=== PATIENT | male | born 1950 | race Caucasian/White ===

== ENCOUNTER 2016-08-23 17:19 | Emergency (ER) | payer MEDICARE, OTHER ==
[2016-08-23] MEDS ORDERED: Adacel Vial IM ONE ×2 (17:35→17:40)
[2016-08-23] MEDS ORDERED: XYLOCAINE 1% HCL 20 ML MDV IJ ONE (17:36)
[2016-08-23] MEDS ORDERED: BACIGUENT PACKET TP ONE (17:37)
[2016-08-23] MEDS ORDERED: BACIGUENT PACKET ONE (17:39)
[2016-08-23] MEDS ORDERED: XYLOCAINE 1% HCL 20 ML MDV ONE (17:39)
--- NOTE | 2016-08-23 17:50 | ERPHSYRPT ---
- History of Present Illness Time Seen by Provider: 08/23/16 17:44 Source: patient, family Exam Limitations: no limitations Patient Subjective Stated Complaint: cut fingers with table saw Triage Nursing Assessment: alert x 3, left hand middle finger has lacerations approx 1cm over the finger nail and side of finger, ring finger small laceration approx 1/2 cm to tip of finger. pt able to move all fingers and senstation is intact. Physician History: The patient is a 66-year-old male with his complaining of cutting his left middle finger and left ring finger on a table saw a few minutes before arrival. He does not know when his last tetanus shot was. The cut to the ring finger is minor. He cut to the middle finger is at the tip and involves the fingernail. The patient is left-handed. He has no numbness or tingling in his fingers. Occurred: just prior to arrival Method of Injury: other (table saw) Quality: constant Severity of Pain-Max: mild Severity of Pain-Current: mild Extremities Pain Location: 3rd finger: left, 4th finger: left Modifying Factors: Improves With: nothing Associated Symptoms: none Allergies/Adverse Reactions: No Known Drug Allergies Allergy (Unverified 08/23/16 17:32) Home Medications: Pravastatin Sodium 10 mg PO DAILY 08/23/16 [History] Hx Tetanus, Diphtheria Vaccination/Date Given: Yes (2010) Hx Influenza Vaccination/Date Given: No Hx Pneumococcal Vaccination/Date Given: No Immunizations Up to Date: Yes - Review of Systems Constitutional: No Fever, No Chills Eyes: No Symptoms Ears, Nose, & Throat: No Symptoms Respiratory: No Cough, No Dyspnea Cardiac: No Chest Pain, No Edema, No Syncope Abdominal/Gastrointestinal: No Abdominal Pain, No Nausea, No Vomiting, No Diarrhea Genitourinary Symptoms: No Dysuria Musculoskeletal: No Back Pain, No Neck Pain Skin: Other (Laceration) Neurological: No Dizziness, No Focal Weakness, No Sensory Changes Psychological: No Symptoms Endocrine: No Symptoms Hematologic/Lymphatic: No Symptoms Immunological/Allergic: No Symptoms All Other Systems: Reviewed and Negative - Past Medical History Pertinent Past Medical History: Yes Neurological History: No Pertinent History ENT History: Cataracts Cardiac History: High Cholesterol Respiratory History: No Pertinent History Endocrine Medical History: No Pertinent History Musculoskeletal History: No Pertinent History GI Medical History: No Pertinent History History: No Pertinent History Psycho-Social History: No Pertinent History Male Reproductive Disorders: No Pertinent History - Past Surgical History Past Surgical History: No Cardiac: No Pertinent History Respiratory: No Pertinent History Gastrointestinal: No Pertinent History Genitourinary: No Pertinent History Musculoskeletal: No Pertinent History Male Surgical History: No Pertinent History Other Surgical History: iknee surgery 2011 and 2013 both knees - Social History Smoking Status: Never smoker Exposure to second hand smoke: No Drug Use: none Patient Lives Alone: No - Nursing Vital Signs Nursing Vital Signs: Initial Vital Signs Temperature 97.5 F Temperature Source Oral Pulse Rate 65 Respiratory Rate 18 Blood Pressure [] 159/86 Pain Intensity 0 - Physical Exam General Appearance: alert Eyes, Ears, Nose, Throat Exam: moist mucous membranes Neck Exam: non-tender, supple Cardiovascular/Respiratory Exam: chest non-tender, normal breath sounds, regular rate/rhythm, no respiratory distress Abdominal Exam: non-tender, No guarding Back Exam: normal inspection, No vertebral tenderness Shoulder Exam: normal inspection Elbow/Forearm Exam: normal inspection Wrist Exam: normal inspection Hand Exam: nail injury (Tiny superficial laceration to tip of left ring finger. Laceration to distal left middle finger involving the nailbed.) Neuro/Tendon Exam: normal sensation, normal motor functions Mental Status Exam: alert, oriented x 3, cooperative Skin Exam: laceration (As described above) SpO2: 95 Oxygen Delivery: Room Air Procedures - Laceration/Wound Repair Left Distal Finger Wound Location: Left (distal middle finger) Wound Length (cm): 1.5 Wound's Depth, Shape: superficial, linear, nail-avulsed Wound Explored: clean Irrigated: Yes Hibiclens Prep: Yes Anesthesia: local, 1% Lidocaine Volume Anesthetic (ccs): 3 Wound Debrided: minimal Wound Repaired With: sutures Suture Size/Type: 4-0, nylon Number of Sutures: 4 Layer Closure?: No Sterile Dressing Applied?: Yes Splint Applied?: No Sling Applied?: No - Radiology Exams Left Hand X-ray Interpretation: Interpreted by me, Negative, No Fracture, Other ( laceration to distal left middle finger) Ordered Tests: Active Orders 24 hr Category Date Time Status Sutures STAT Care 08/23/16 17:34 Active Wound Care STAT Care 08/23/16 17:52 Active FINGER(S) Stat Exams 08/23/16 17:53 Taken Medication Summary Discontinued Medications Generic Name Dose Route Start Last Admin Trade Name Maurilio PRN Reason Stop Dose Admin Bacitracin 0.9 gm 08/23/16 17:37 08/23/16 17:43 Baciguent Packet TP 08/23/16 17:38 0.9 gm STAT ONE Administration Bacitracin Confirm 08/23/16 17:39 Baciguent Packet Administered 08/23/16 17:40 Dose 1 gm .ROUTE .STK-MED ONE Diphtheria/Tetanus/Acell Pertussis 0.5 ml 08/23/16 17:35 08/23/16 17:42 Adacel Vial IM 08/23/16 17:36 0.5 ml .ONCE ONE Administration Diphtheria/Tetanus/Acell Pertussis Confirm 08/23/16 17:40 Adacel Vial Administered 08/23/16 17:41 Dose 0.5 ml IM .STK-MED ONE Lidocaine HCl 5 ml 08/23/16 17:36 08/23/16 17:45 Xylocaine 1% Hcl 20 Ml Mdv IJ 08/23/16 17:37 5 ml STAT ONE Administration Lidocaine HCl Confirm 08/23/16 17:39 Xylocaine 1% Hcl 20 Ml Mdv Administered 08/23/16 17:40 Dose 5 ml .ROUTE .STK-MED ONE - Progress Progress: improved Counseled pt/family regarding: diagnosis, rad results - Departure Time of Disposition: 18:14 Departure Disposition: Home Clinical Impression: Laceration of finger nail bed Condition: Stable Critical Care Time: No Referrals: NAV GARZA MD [Primary Care Provider] - Instructions: Care for a Laceration After Repair Additional Instructions: Follow up for suture removal in 12 to 14 days. Take naproxen 500 mg twice a day as needed. Take augmentin twice a day for 10 days. Prescriptions: Amoxicillin/Potassium Clav [Augmentin 875-125 Tablet] 875 mg PO BID #20 tablet Naproxen 500 mg PO BID PRN #30 tablet
[2016-08-23 18:20] VITALS: BP 126/80; PULSE 78; O2SAT 97
--- NOTE | 2016-08-24 08:30 | XRAY ---
Indication: Laceration. Comparison: None 3 views of the left third finger demonstrates laceration involving the tip. No other bony, articular, or soft tissue abnormalities.
== END 2016-08-23 18:20 | disposition home or self-care (01) ==
LOC: ED 17:19
PROC: 0HQGXZZ Repair Left Hand Skin, External Approach (ICD-10-PCS; principal; 2016-08-23)
DX: S61.313A Laceration without foreign body of left middle finger with damage to nail, initial encounter (principal); W31.2XXA Contact with powered woodworking and forming machines, initial encounter
CPT/HCPCS: 12001; 73140; 90471; 90715; 96372; 99283

== ENCOUNTER 2018-01-10 11:06 | Emergency (ER) | payer MEDICARE, OTHER | END 2018-01-10 11:50 | disposition home or self-care (01) | LOC: ED 11:06 | DX: S61.012A Laceration without foreign body of left thumb without damage to nail, initial encounter (principal); W26.8XXA Contact with other sharp object(s), not elsewhere classified, initial encounter | CPT/HCPCS: 12001; 99282 ==

== ENCOUNTER 2018-05-31 14:37 | Emergency (ER) | payer MEDICARE, OTHER ==
[2018-05-31 14:56] VITALS: BP 179/96; PULSE 66; O2SAT 100
--- NOTE | 2018-05-31 15:12 | ERPHSYRPT ---
- History of Present Illness Time Seen by Provider: 05/31/18 14:40 Source: patient Exam Limitations: no limitations Patient Subjective Stated Complaint: CUT TO LEFT THUMB WITH TABLE SAW AT HOME Triage Nursing Assessment: VERY ANXIOUS WITH LACERATION TO THE TIP OF THE LEFT THUMB WITH A TABLE SAW. MINIMAL BLEEDING NOTED. + RADIAL PULSE PRESENT. HYPERVENTILATING.. REASSURED Physician History: 67 y/o left handed white male presents with left thumb laceration while using a table saw. occurred [employer]. pts tetanus utd 08/23/16. Timing/Duration: today Quality: painful Severity: moderate Location: hands (tip of left thumb) Possible Causes: other (laceration while using table saw) Associated Symptoms: denies symptoms Allergies/Adverse Reactions: No Known Drug Allergies Allergy (Unverified 05/31/18 15:08) Hx Tetanus, Diphtheria Vaccination/Date Given: Yes (2010) Hx Influenza Vaccination/Date Given: No Hx Pneumococcal Vaccination/Date Given: No Immunizations Up to Date: Yes - Review of Systems Constitutional: No Symptoms Eyes: No Symptoms Ears, Nose, & Throat: No Symptoms Respiratory: No Symptoms Cardiac: No Symptoms Abdominal/Gastrointestinal: No Symptoms Genitourinary Symptoms: No Symptoms Musculoskeletal: Injury Skin: Other Psychological: No Symptoms Endocrine: No Symptoms Hematologic/Lymphatic: No Symptoms Immunological/Allergic: No Symptoms All Other Systems: Reviewed and Negative - Past Medical History Pertinent Past Medical History: Yes Neurological History: No Pertinent History ENT History: Cataracts Cardiac History: High Cholesterol Respiratory History: No Pertinent History Endocrine Medical History: No Pertinent History Musculoskeletal History: No Pertinent History GI Medical History: No Pertinent History History: No Pertinent History Psycho-Social History: No Pertinent History Male Reproductive Disorders: No Pertinent History - Past Surgical History Past Surgical History: Yes Cardiac: No Pertinent History Respiratory: No Pertinent History Gastrointestinal: No Pertinent History Genitourinary: No Pertinent History Musculoskeletal: No Pertinent History Male Surgical History: No Pertinent History Other Surgical History: iknee surgery 2012 and 2013 both knees - Social History Smoking Status: Never smoker Exposure to second hand smoke: No Drug Use: marijuana Patient Lives Alone: No - Nursing Vital Signs Nursing Vital Signs: Initial Vital Signs Pulse Rate 66 05/31/18 14:50 Respiratory Rate 22 05/31/18 14:50 Blood Pressure 179/96 05/31/18 14:50 O2 Sat by Pulse Oximetry 100 05/31/18 14:50 Pain Scale Pain Intensity 0 - Physical Exam General Appearance: moderate distress, alert, anxiety Eye Exam: PERRL/EOMI Ears, Nose, Throat Exam: normal ENT inspection, moist mucous membranes Neck Exam: normal inspection, non-tender, supple, full range of motion Respiratory Exam: lungs clear, airway intact, No chest tenderness, No respiratory distress, No accessory muscle use, No rhonchi, No wheezing, No stridor Cardiovascular Exam: regular rate/rhythm, normal heart sounds, normal peripheral pulses Gastrointestinal/Abdomen Exam: soft, normal bowel sounds, No guarding, No rebound Rectal Exam: not done Back Exam: normal inspection, normal range of motion, vertebral tenderness, No CVA tenderness Extremity Exam: normal inspection, normal range of motion, pelvis stable Neurologic Exam: alert, oriented x 3, cooperative, rag sorter and cutter II-XII nml as tested Skin Exam: laceration (left tip of thumb with 60% partial laceration; nv inact; tendon intact) SpO2: 100 Oxygen Delivery: Room Air Procedures - Laceration/Wound Repair Distal Volar Finger Wound Location: Left, hand (thumb) Wound Length (cm): 2 (oval flap) Wound's Depth, Shape: superficial (2), flap, into subcut Wound Explored: to base Hibiclens Prep: Yes Anesthesia: 1% Lidocaine Volume Anesthetic (ccs): 3 Wound Debrided: minimal Wound Repaired With: sutures Suture Size/Type: 4-0, nylon Number of Sutures: 10 Layer Closure?: No Sterile Dressing Applied?: Yes - Course Nursing assessment & vital signs reviewed: Yes Ordered Tests: Active Orders 24 hr Category Date Time Status Wound Care STAT Care 05/31/18 15:17 Active HAND (MINIMUM 3 VIEWS) Stat Exams 05/31/18 15:16 Taken Medication Summary Generic Name Dose Route Start Last Admin Trade Name Freq PRN Reason Stop Dose Admin Oxycodone/Acetaminophen 1 tab 05/31/18 16:00 Percocet Tablet 5/325mg PO 05/31/18 16:01 STAT ONE Discontinued Medications Generic Name Dose Route Start Last Admin Trade Name Freq PRN Reason Stop Dose Admin Bacitracin Zinc 0.9 gm 05/31/18 15:17 05/31/18 15:21 Baciguent Packet TP 05/31/18 15:18 0.9 gm STAT ONE Administration - Progress Progress: improved Progress Note: 05/31/18 16:01 xray left hand- excised tuft 1st digit Counseled pt/family regarding: diagnosis, need for follow-up, rad results - Departure Time of Disposition: 16:03 Departure Disposition: Home Clinical Impression: Closed fracture of tuft of distal phalanx of left thumb, Thumb laceration Condition: Stable Critical Care Time: No Referrals: NAV GARZA MD [Primary Care Provider] - Additional Instructions: keep bandage in place for 36 hours. after 36 hours, remove top dressing, wash daily, apply antibiotic ointment, re bandage daily. suture removal in 10 days. Prescriptions: Oxycodone HCl/Acetaminophen [Percocet 5-325 mg Tablet] 1 each PO Q6H PRN PRN # 12 tablet MDD 4 PRN Reason: Pain Cephalexin Mh 500 mg [Keflex 500 mg] 500 mg PO TID #21 capsule
[2018-05-31] MEDS ORDERED: BACIGUENT PACKET TP ONE (15:17)
[2018-05-31] MEDS ORDERED: PERCOCET TABLET 5/325MG PO ONE (16:00)
--- NOTE | 2018-05-31 16:01 | XRAY ---
Indication: Thumb laceration. Comparison: None 3 views of the left hand demonstrates minimally displaced distal 1st phalanx tuft fracture with soft tissue swelling/laceration and moderate degenerative changes of the 1st metacarpal multangular articulation. No other bony, articular, or soft tissue abnormalities.
[2018-05-31] MEDS ORDERED: PERCOCET TABLET 5/325MG ONE (16:04)
== END 2018-05-31 16:23 | disposition home or self-care (01) ==
LOC: ED 14:37
DX: S62.522A Displaced fracture of distal phalanx of left thumb, initial encounter for closed fracture (principal); S61.012A Laceration without foreign body of left thumb without damage to nail, initial encounter; W31.2XXA Contact with powered woodworking and forming machines, initial encounter; Y92.009 Unspecified place in unspecified non-institutional (private) residence as the place of occurrence of the external cause
CPT/HCPCS: 12001; 73130; 99283; A9270-GY